=== PATIENT | male | born 1950 | race Caucasian/White ===

== ENCOUNTER 2019-12-30 10:04 | Outpatient (CLI) | payer OTHER, SELFPAY ==
--- NOTE | ~2019-12-30 | US_ITS ---
EXAMINATION: US aorta [facility] DATE: 12/30/2019 10:36 INDICATION: Abdominal aortic aneurysm screening with risk factors of hypertension, smoking and hyperc holesterolemia. TECHNIQUE: Grayscale, color Doppler, and pulsed Doppler images of the aorta and common iliac arteries were obtained. COMPARISON: None. FINDINGS: The proximal aorta measures 2.8 cm. The mid aorta measures 2.0 cm. The distal aorta measures 2.1 cm. No evident atherosclerosis. The right common iliac artery measures 1.3 cm. The left common iliac lucretia ry measures 1.5 cm. IMPRESSION: 1. Normal abdominal aorta. Reviewed, dictated and finalized at location A. IMPRESSION: 1. Normal abdominal aorta.
--- NOTE | ~2019-12-30 | CT_ITS ---
EXAMINATION: CT lung screening DATE: 12/30/2019 11:23 INDICATION: Personal history of tobacco dependence, prior smoker with 30 pack year history TECHNIQUE: Computed tomography (CT) of the chest was performed without intravenous contrast. The dose -length product (DLP) was 142.13 mGy-cm. Automated exposure control and iterative reconstruction tech [employer] were employed. COMPARISON: None FINDINGS: There is mild emphysema. No suspicious pulmonary nodules are identified. Calcified pulmonar y nodules and calcified right hilar lymph nodes are consistent with old granulomatous disease. The dieter ngs are free of acute opacities. There is no pleural effusion or pneumothorax. No pathologically enla rged thoracic lymph nodes are identified. The heart size is normal. Calcified coronary artery atheros clerosis is noted. The gallbladder is surgically absent. There is moderate thoracic spondylosis and s evere lower cervical spondylosis. IMPRESSION: 1. Lung-RADS category 1: Negative. Continue annual screening with noncontrast low-dose chest CT in 12 months. Reviewed, dictated and finalized at location A. IMPRESSION: 1. Lung-RADS category 1: Negative. Continue annual screening with noncontrast l ow-dose chest CT in 12 months.
== END 2019-12-30 10:05 | disposition home or self-care (01) ==
PROVIDERS: PCP Family Medicine; Visit Provider Family Medicine
DX: Z12.2 Encounter for screening for malignant neoplasm of respiratory organs (principal); Z87.891 Personal history of nicotine dependence; Z13.6 Encounter for screening for cardiovascular disorders
CPT/HCPCS: 76706; G0297

== ENCOUNTER 2020-01-19 00:54 | Outpatient (CLI) | payer OTHER, SELFPAY ==
[2020-01-19 18:42] LABS: SARS-CoV-2 RNA PCR Negative
== END 2020-01-19 00:55 | disposition home or self-care (01) ==
LOC: ANHCOVIDDT 00:54
PROVIDERS: PCP Family Medicine; Visit Provider Internal Medicine Gastroenterology
DX: Z01.812 Encounter for preprocedural laboratory examination (principal); Z11.59 Encounter for screening for other viral diseases
CPT/HCPCS: 87635; C9803; U0003

== ENCOUNTER 2020-01-21 02:49 | Day surgery (SDC) | payer OTHER, SELFPAY ==
[2020-01-15 11:11] VITALS: BMI 30.9
[2020-01-21 06:35] VITALS: BP 166/96; PULSE 92; RESP 16; TEMP 36.5; O2SAT 92
[2020-01-21] MEDS: LACTATED RINGERS 1,000 ML 150 ML IV CONT (06:45)
--- NOTE | 2020-01-21 07:16 | P.HP_ITS ---
History of Present Illness History of Present Illness Consent: Risks, benefits, and alternatives have been discussed and questions answered. Patient agrees to proceed with procedure. Chief complaint: Neoplasm Screening Narrative: Antoine Damian is a 69 year old male For screening colonoscopy. A recent colo guard test was positive [facility] Family History Family History Sibling Malignant neoplasm of prostate Family history of coronary artery disease Father Family history of coronary artery disease Social History Social History Smoking status: Former smoker Smoking end date: 07/09/16 Alcohol intake: never Substance use: never Substance use type: does not use Gender identity (if verbalized by the patient): Male Meds Home Medications and Allergies Home Medications Medication Instructions Recorded Confirmed Type folic acid 1 mg tablet 1 mg PO DAILY #90 tablet 08/18/19 01/15/20 Rx metoprolol succinate 50 mg 50 mg PO DAILY #90 tablet 11/26/19 01/15/20 Rx tablet,extended release 24 hr atorvastatin 10 mg tablet 10 mg PO DAILY #90 tablet 12/09/19 01/15/20 Rx sildenafil (pulm.hypertension) 20 See Rx Instructions PO .COMPLEX 12/11/19 01/15/20 Rx mg tablet #30 tablet omeprazole 40 mg capsule,delayed 40 mg PO DAILY #90 cap 12/17/19 01/15/20 Rx release Allergies Allergy/AdvReac Type Severity Reaction Status Date / Time No Known Allergies Allergy Verified 01/21/20 06:32 Vital Signs Vital Signs - 24 hr 01/21/20 06:35 Temperature 36.5 C Pulse Rate 92 Respiratory Rate 16 Blood Pressure 166/96 H Pulse Oximetry 92 Exam Resp: Auscultation: clear to auscultation bilaterally Cardio: Rate: regular rate Rhythm: regular rhythm GI: GI Palp: Yes Soft to palpation and No Tenderness to palpation present (GI) Assessment and Plan Assessment and plan (1) Colon cancer screening: Code(s): Z12.11 - Encounter for screening for malignant neoplasm of colon Status: Acute Assessment and Plan: Colonoscopy with possible biopsy or polypectomy or cautery or injection of substances.
--- NOTE | 2020-01-21 07:32 | WPDANESEPPF ---
Anes - Initial Pre Proc Eval Procedure: Operation Date: 01/21/20 08:00 Proposed Procedures p Screening Colonoscopy - Jose Rasmussen MD Date/Time: 01/21/20 07:32 Surgeon: Jose Rasmussen MD Pre Op Diagnosis: Neoplasm Screening Patient Data Age: 69 Gender: M Height: 5 ft 11 in Weight: 97.8 kg Last Vital Signs Temp 97.7 F 01/21/20 06:35 Pulse 92 01/21/20 06:35 Resp 16 01/21/20 06:35 BP 166/96 H 01/21/20 06:35 Pulse Ox 92 01/21/20 06:35 Allergies Allergy/AdvReac Type Severity Reaction Status Date / Time No Known Allergies Allergy Verified 01/21/20 06:32 Home Medications Medication Instructions Recorded Confirmed Type folic acid 1 mg tablet 1 mg PO DAILY #90 tablet 08/18/19 01/15/20 Rx metoprolol succinate 50 mg 50 mg PO DAILY #90 tablet 11/26/19 01/15/20 Rx tablet,extended release 24 hr atorvastatin 10 mg tablet 10 mg PO DAILY #90 tablet 12/09/19 01/15/20 Rx sildenafil (pulm.hypertension) 20 See Rx Instructions PO .COMPLEX 12/11/19 01/15/20 Rx mg tablet #30 tablet omeprazole 40 mg capsule,delayed 40 mg PO DAILY #90 cap 12/17/19 01/15/20 Rx release Patient hx anesthesia problems: none Family hx anesthesia problems: none PMFSH Past Medical History Medical History (Updated 01/21/20 @ 07:32 by Baljeet Patel MD) Chronic GERD Essential hypertension Mixed hyperlipidemia Renal mass Surgical History Surgical History History of cholecystectomy Family History Family History Sibling Malignant neoplasm of prostate Family history of coronary artery disease Father Family history of coronary artery disease Social History Social History Smoking status: Former smoker Smoking end date: 07/09/16 Alcohol intake: never Substance use: never Substance use type: does not use Gender identity (if verbalized by the patient): Male Anes - Eval Final PreProcedure Day of Procedure 01/21/20 07:32 Patient weight: obese Heart: regular rate and rhythm Lungs: clear to auscultation Airway: Mallampati scale Neurological: alert and oriented Last oral intake: >/= 8 hours ASA classification: III Emergent: no Anesthetic plan: proceed Anesthesia type and monitoring: general GIVS and standard monitoring Informed Consent: The patient's anesthetic plan and its attendant risks and benefits were discussed with the patient/family/POA. Questions were solicited and answers provided to the satisfaction of the patient/family/POA.
[2020-01-21] MEDS: SIMETHICONE ORAL SUSPENSION 20 MG/0.3 ML 30 ML BOTTLE 0.6 ML IRRIGATION (08:28)
[2020-01-21 08:42] VITALS: BP 116/74; PULSE 80; RESP 20; O2SAT 89
[2020-01-21 08:52] VITALS: BP 121/81; PULSE 73; RESP 20; O2SAT 94
[2020-01-21 08:53] VITALS: BP 141/88; PULSE 75; RESP 20; O2SAT 95
== END 2020-01-21 09:08 | disposition home or self-care (01) ==
PROVIDERS: PCP Family Medicine; Visit Provider Internal Medicine Gastroenterology
PROC: 0DJD8ZZ Inspection of Lower Intestinal Tract, Via Natural or Artificial Opening Endoscopic (ICD-10-PCS; CPT 45378; principal; 2020-01-21 08:00)
DX: Z12.11 Encounter for screening for malignant neoplasm of colon (principal); D12.5 Benign neoplasm of sigmoid colon; K63.5 Polyp of colon; K62.1 Rectal polyp; R19.5 Other fecal abnormalities; I10 Essential (primary) hypertension; E78.2 Mixed hyperlipidemia; K21.9 Gastro-esophageal reflux disease without esophagitis; Z87.891 Personal history of nicotine dependence; E66.9 Obesity, unspecified; Z68.30 Body mass index [BMI] 30.0-30.9, adult
CPT/HCPCS: 45385; 45380; 88305; J2704; J7120

== ENCOUNTER → 2020-12-29 08:20 | Outpatient (CLI) | payer OTHER, SELFPAY ==
--- NOTE | ~2020-12-29 | CT_ITS ---
EXAMINATION: CT lung screening DATE: 12/29/2020 08:35 INDICATION: Lung cancer screening TECHNIQUE: Computed tomography (CT) of the chest was performed without intravenous contrast. The dose -length product was 200.95 mGy-cm. Automated exposure control and iterative reconstruction technique were employed. COMPARISON: CT dated 12/30/2011 FINDINGS: Mild emphysema. No significant pleural or pericardial effusion. Heart size normal. No thora cic lymphadenopathy. There is an exophytic 1.5 cm right renal mass posteriorly. Correlation with MRI recommended for further characterization. There are cholecystectomy clips. No suspicious pulmonary no dules or masses. No pneumothorax. There is evidence for chronic granulomatous disease. IMPRESSION: 1. Lung-RADS category 1: Negative. Continue annual screening with noncontrast low-dose chest CT in 12 months. 2: Complicated partially solid 1.5 cm right renal mass, concerning for renal cell carcinoma. Correlat ion with MRI recommended with contrast. Reviewed, dictated and finalized at location B. IMPRESSION: 1. Lung-RADS category 1: Negative. Continue annual screening with noncontrast l ow-dose chest CT in 12 months. 2: Complicated partially solid 1.5 cm right renal mass, concerning for renal ce ll carcinoma. Correlation with MRI recommended with contrast.
== END ==
PROVIDERS: PCP Family Medicine; Visit Provider Family Medicine
DX: Z12.2 Encounter for screening for malignant neoplasm of respiratory organs (principal); Z87.891 Personal history of nicotine dependence; N28.89 Other specified disorders of kidney and ureter
CPT/HCPCS: 71271

== ENCOUNTER → 2022-01-02 10:46 | Outpatient (CLI) | payer OTHER, SELFPAY ==
--- NOTE | ~2022-01-02 | CT_ITS ---
EXAMINATION: CT lung screening DATE: 01/02/2022 11:07 INDICATION: Personal history of nicotine dependence, prior smoker with 30 pack year history TECHNIQUE: Computed tomography (CT) of the chest was performed without intravenous contrast. The dose -length product (DLP) was 242.19 mGy-cm. Automated exposure control and iterative reconstruction tech [employer] were employed. COMPARISON: 12/29/2020 FINDINGS: There is mild emphysema. Calcified pulmonary nodules and calcified right hilar lymph nodes are consistent with old granulomatous disease. No suspicious pulmonary nodules are identified. No ple ural effusion or pneumothorax. No pathologically enlarged thoracic lymph nodes are identified. The he art size is normal. Calcified coronary artery atherosclerosis is noted. The gallbladder is surgically absent. There is moderate thoracic and severe lower cervical spondylosis. IMPRESSION: 1. Lung-RADS category 1: Negative. Continue annual screening with noncontrast low-dose chest CT in 12 months. Reviewed, dictated and finalized at location A. IMPRESSION: 1. Lung-RADS category 1: Negative. Continue annual screening with noncontrast l ow-dose chest CT in 12 months.
== END ==
PROVIDERS: PCP Family Medicine; Visit Provider Family Medicine
DX: Z12.2 Encounter for screening for malignant neoplasm of respiratory organs (principal); Z87.891 Personal history of nicotine dependence
CPT/HCPCS: 71271

== ENCOUNTER 2022-10-21 08:03 | Outpatient (CLI) | payer OTHER, SELFPAY ==
--- NOTE | ~2022-10-21 | XR_ITS ---
Left Knee Technique: AP, lateral, and sunrise views were obtained. Clinical History: Pain Findings: There is a large osteophyte/enthesopathic change at the inferior pole of patella, possible fracture through the osteophyte. No other fracture or dislocation seen. Minimal patellar spurring not ed. Soft tissues are unremarkable. No joint effusion is seen. Impression: Suspected fracture through a large inferior patellar pole osteophyte/enthesopathic change. Reviewed, dictated and finalized at location M. Impression: Suspected fracture through a large inferior patellar pole osteophyte/enthesopat hic change.
== END 2022-10-21 08:04 | disposition home or self-care (01) ==
LOC: ANHIMG 08:05
PROVIDERS: PCP Family Medicine; Visit Provider Family Medicine
DX: M25.562 Pain in left knee (principal)
CPT/HCPCS: 73560

== ENCOUNTER 2022-10-24 14:10 | Observation (INO) | payer OTHER, SELFPAY ==
[2022-10-24] VITALS (9 sets, daily range): BP systolic 111–150; BP diastolic 82–104; PULSE 68–90; RESP 14–19; TEMP 36.1–36.7; O2SAT 93–100; BMI 30.3
--- NOTE | ~2022-10-24 | MR_ITS ---
MRI of the brain Clinical History: Confusion, CVA Technique: Axial and sagittal T1-weighted images were acquired. These were followed by axial T2-weigh apuvra, diffusion weighted, gradient, and FLAIR images. Findings: There is no acute infarct, intracranial hemorrhage, or mass lesion. There are minimal chron ic white matter changes in the periventricular white matter bilaterally. Ventricles and subarachnoid spaces are unremarkable. Orbits are unremarkable. There is opacification of the left maxillary sinus. There is mild bilateral ethmoid sinus disease. Remaining paranasal sinus es and mastoid air cells are clear. Major intracranial flow voids are intact. Sagittal midline structures are intact. IMPRESSION: No acute intracranial abnormality. Minimal chronic white matter changes. Sinus disease, as above. Reviewed, dictated and finalized at location .
--- NOTE | ~2022-10-24 | CT_ITS ---
EXAMINATION: CT brain wo con DATE: 10/24/2022 14:55 INDICATION: Altered mental status, confusion and slurred speech TECHNIQUE: Computed tomography (CT) of the head was performed without intravenous contrast. Sagittal and coronal reconstructions were performed. The mA was adjusted according to patient size. Iterative reconstruction technique was employed. The dose-length product was 605.33 mGy-cm. COMPARISON: None FINDINGS: Tiny old lacunar infarct at the head of the right caudate nucleus. No acute intracranial hemorrhage, acute infarction or abnormal extra axial fluid collection. Symmetric prominence of the sulci consiste nt with mild to moderate age-appropriate diffuse cerebral volume loss. Ventricles are normal and sym metric. No mass/mass effect. Changes of bilateral intraocular lens replacement. The orbits and mastoi d air cells are normal. Mucosal thickening in the bilateral ethmoid sinuses and near complete opacifi cation of the visualized portion of the left maxillary sinus. IMPRESSION: 1. Small old lacunar infarct at the head of the right caudate nucleus. No acute intracranial process. 2. Sinus disease with near complete opacification of the visualized portion of the left maxillary sin us. Correlate clinically for acute sinusitis. Reviewed, dictated and finalized at location A. IMPRESSION: 1. Small old lacunar infarct at the head of the right caudate nucleus. No acute intracranial process. 2. Sinus disease with near complete opacification of the visualized portion of the left maxillary sinus. Correlate clinically for acute sinusitis.
--- NOTE | ~2022-10-24 | US_ITS ---
Procedure: Duplex Doppler examination of the bilateral carotids. Indication: Confusion, neurologic symptoms Technique: Real time, color-flow and pulse wave Doppler examination of the bilateral carotids was performed. Findings: Armendariz scale ultrasonography of the right neck demonstrated no significant plaque. There was demonstrat ion of normal color-flow and Doppler waveforms within the right common, internal and external carotid arteries. The peak systolic velocities in the right common, internal and external carotid arteries w ere demonstrated to be 65 cm/sec, 41 cm/sec and 51 cm/sec respectively. The right ICA/CCA ratio was 0 .6.The proximal right internal carotid artery demonstrates 0% stenosis relative to the normal distal artery lumen diameter. Armendariz scale sonography of the left neck demonstrated no significant plaque. There was demonstration of normal color-flow and wave forms within the left common, internal and external carotid arteries. The peak systolic velocities in the left common, internal and external carotid arteries were demonstrate d to be 69cm/sec, 69 cm/sec and 57 cm/sec respectively. The left ICA/CCA ratio was 1.0. The proximal left internal carotid artery demonstrates 0% stenosis relative to the normal distal artery lumen diam eter. There was antegrade flow demonstrated in the bilateral vertebral arteries. Impression: No hemodynamically significant stenosis of the bilateral internal carotid arteries. Antegrade flow in the bilateral vertebral arteries. Note: The methodology used is an indirect measurement validated against a direct method (such as the NASCET criteria) that compares diameters at the stenosis to the distal ICA. Reviewed, dictated and finalized at [facility]. Impression: No hemodynamically significant stenosis of the bilateral internal carotid arter ies. Antegrade flow in the bilateral vertebral arteries. Note: The methodology used is an indirect measurement validated against a direct meth od (such as the NASCET criteria) that compares diameters at the stenosis to the distal ICA.
--- NOTE | 2022-10-24 14:19 | ECG_ITS ---
Measurements Intervals [place] Rate: 80 P: 20 AL: 202 QRS: -27 QRSD: 112 T: -15 QT: 382 QTc: 441 Interpretive Statements SINUS RHYTHM BORDERLINE LEFT AXIS DEVIATION [QRS AXIS < -20] MODERATE INTRAVENTRICULAR CONDUCTION DELAY [110+ ms QRS DURATION] MODERATE T-WAVE ABNORMALITY, CONSIDER ANTERIOR ISCHEMIA [-0.1+ mV T WAVE IN V3/V4] NO PREVIOUS ECG AVAILABLE FOR COMPARISON Electronically Signed On 10-24-2022 18:04:10 CDT by Charles Paniagua M.D.
--- NOTE | 2022-10-24 14:24 | PC.NURSE ---
BS 450
[2022-10-24 14:31] LABS: Glucose Point of Care 450 mg/dl (65-105)
[2022-10-24 14:34] LABS: Basophils Absolute Auto 0.1 K/mm3 (0.0-0.1); Basophils Percent Auto 0.8 % (0.2-1.2); Eosinophils Absolute Auto 0.3 K/mm3 (0-0.3); Eosinophils Percent Auto 2.9 % (0-4.4); Hematocrit 46.6 % (42.0-52.0); Hemoglobin 16.7 g/dL (14.0-18.0); Immature Granulocyte Absolute 0.03 K/mm3 (0.00-0.031); Immature Granulocyte Percent A 0.3 % (0-0.5); Lymphocytes Absolute Auto 1.93 K/mm3 (0.9-3.2); Lymphocytes Percent Auto 19.4 % (18.3-44.2); Mean Corpuscular HGB Conc 35.8 g/dl (32-36); Mean Corpuscular Hemoglobin 32.2 pg (26-34); Monocytes Absolute Auto 0.6 K/mm3 (0.1-0.6); Monocytes Percent Auto 6.2 % (2.6-8.5); Neutrophils Percent Auto 70.4 % (45.5-73.1); Platelet Count Result 158 k/mm3 (150-375); Red Blood Count 5.18 M/mm3 (4.6-6.20); Red Cell Distribution Width 12.8 % (11.5-14.5)
[2022-10-24 14:42] LABS: Alanine Aminotransferase 30 U/L (6-50); Albumin Level 4.4 g/dL (3.5-5.1); Alkaline Phosphatase 179 U/L (38-126); Anion Gap 10 mmol/L (8-16); Aspartate Amino Transferase 26 U/L (17-59); Bilirubin,Total 1.9 mg/dL (0.2-1.3); Blood Urea Nitrogen 12 mg/dL (9-20); Calcium 9.3 mg/dL (8.4-10.2); Carbon Dioxide 25 mmol/L (22-30); Chloride 99 mmol/L (98-107); Estimated CRCL calculation 84 ml/min; Estimated Glomerular Filt Rate > 60; Glucose 457 mg/dL (65-110); Sodium 134 mmol/L (137-145)
--- NOTE | 2022-10-24 14:44 | ED.AMS ---
HPI - Altered Mental Status General Chief Complaint: Altered Mental Status Stated Complaint: Altered mental status Time Seen by Provider: 10/24/22 14:33 History of Present Illness HPI narrative: Pt presents with altered mental status and confusion as well as fatigue for 3-4 days. Pt denies fever or cough. Pt has some urinary frequency but no dysuria. Pt has intermittent LENNON's behind left eye but not now. Pt denies one sided weakness or numbness. Related Data Home Medications Medication Instructions Recorded Confirmed gabapentin 300 mg capsule 300 mg PO TID 10/24/22 10/24/22 metoprolol succinate 50 mg 50 mg PO DAILY 10/24/22 10/24/22 tablet,extended release 24 hr Allergies Allergy/AdvReac Type Severity Reaction Status Date / Time No Known Allergies Allergy Verified 10/24/22 14:21 Review of Systems Review of Systems: All systems reviewed & are unremarkable except as noted in HPI and below PMFSH Past Medical History Medical History Chronic GERD Essential hypertension History of renal cell cancer Mixed hyperlipidemia Renal mass Surgical History Surgical History History of cholecystectomy Family History Family History Sibling Malignant neoplasm of prostate Family history of coronary artery disease Father Family history of coronary artery disease Social History Social History Smoking packs per day: 2 Smoking cigarettes per day: 40.0 Years smoked: 40 Smoking pack-years: 80.00 Smoking status: Former smoker Tobacco type: cigarettes Second hand tobacco smoke exposure: Yes Smoking end date: 07/09/16 Alcohol intake: never Substance use: never Substance use type: does not use Lack of Transportation: No Lack of Food: Never True Current Housing: Decline to Answer Concerned About Future Housing: Decline to Answer Difficulty Paying Gas/Electric Bills: Decline to Answer Difficulty Paying for Meds: Decline to Answer Currently Unemployed: Decline to Answer Education: Decline to Answer Difficulty w/ Childcare or Family Care: Decline to Answer Living arrangements: with family Occupation/Education: retired Gender identity (if verbalized by the patient): Male Spiritual care concerns: No Exam Const: General: healthy appearing and no acute distress Nutritional Appearance: well nourished Orientation/consciousness: patient oriented x3 Limitations: no limitations HENMT: Head: normal to inspection Mouth: Yes dry mucous membranes Eyes: Conjunctivae: conjunctivae normal Pupils: Equal, round and reactive pupils present EOM: EOMs intact bilaterally Neck: Neck: normal visual inspection, no lymphadenopathy and no meningeal signs Chest: Chest palpation & inspection: normal inspection of the chest Resp: Effort & Inspection: normal respiratory effort Auscultation: clear to auscultation bilaterally Cardio: Rate: regular rate Rhythm: regular rhythm GI: GI Palp: Yes Soft to palpation Auscultation: normal bowel sounds Skin: General skin exam: normal color Rashes: no rashes Wounds: no wounds Neuro: General: patient oriented x3, moves all extremities, no meningeal signs, no focal motor deficits and CN's II-XI intact bilaterally Cranial nerves: Yes Nystagmus not present Speech: normal speech Extrem: General: normal to inspection, no clubbing, cyanosis or edema and no pedal edema Psych: Mental Status: mental status grossly normal Affect: normal affect Attitude: cooperative Course Vital Signs Vital signs: Vital Signs Temperature 98.0 F 10/24/22 14:10 Pulse Rate 86 10/24/22 14:10 Respiratory Rate 14 10/24/22 14:10 Blood Pressure 150/104 H 10/24/22 14:10 Pulse Oximetry 93 10/24/22 14:10 Oxygen Delivery Room Air
[2022-10-24 14:47] LABS: INR 1.1; Prothrombin Time 13.4 Seconds (11.1-14.7)
[2022-10-24 14:48] LABS: Partial Thromboplastin Time 28.3 SECONDS (22.3-36.8)
[2022-10-24] MEDS: SODIUM CHLORIDE 0.9% IV 1,000 ML 999 ML IV CONT (15:05)
[2022-10-24] MEDS: INSULIN HUMAN REGULAR (*BKC) 100 UNITS/ML 10 UNITS IV PUSH (15:05)
[2022-10-24 15:24] LABS: Appearance Urine Clear (Clear); Bilirubin Urine Negative (Negative); Blood Urine Negative (Negative); Color Urine Yellow (Yellow); Glucose Urine UA 3+ mg/dL (Negative); Ketones Urine 2+ mg/dL (Negative); Leukocyte Esterase Ur Negative LEU/UL (Negative); Nitrate Urine Negative (Negative); Protein Urine Negative (Negative); Urobilinogen Urine 0.2 mg/dL (<2.0)
[2022-10-24 15:36] LABS: Add Urine Microscopic? NO; Specific Grav Ur 1.044 (1.001-1.035)
[2022-10-24 16:02] LABS: Lactic Acid Reflex 2.2 mmol/L (0.7-2.0)
--- NOTE | 2022-10-24 16:04 | PC.NURSE ---
BS 291.
[2022-10-24 16:05] LABS: Glucose Point of Care 291 mg/dl (65-105)
--- NOTE | 2022-10-24 17:04 | PC.NURSE ---
called dietary and ordered dinner tray for pt at this time
--- NOTE | 2022-10-24 18:13 | ADMGEN ---
This patient, Antoine Damian, was admitted to Medical Room 340-01. Patient/family oriented to hospital policies and general routines including ID bracelet, bed and alarms, visiting hours, pain management, procedures, bathroom and other care routines, personal items, smoking policy, room service/diet, and visiting hours. Information on how to activate the Rapid Response Team has been discussed. Patient/Family are encouraged to report perceived risks to care and to ask questions if they do not understand what they are told or what they should do.
[2022-10-24 18:27] LABS: Glucose Point of Care 302 mg/dl (65-105)
[2022-10-24 18:46] LABS: Reflex Lactic Acid Yes or No Add Lactic
[2022-10-24 19:35] LABS: Lactic Acid 1.8 mmol/L (0.7-2.0)
[2022-10-24 21:50] LABS: Glucose Point of Care 270 mg/dl (65-105)
[2022-10-24 22:06] LABS: Hemoglobin A1C 10.5 % (<5.7)
--- NOTE | 2022-10-24 22:30 | PM.IMHP ---
H&P: HPI History of Present Illness Date/Time: 10/24/22 22:30 Chief Complaint: Altered mental status. Narrative: This is a 72-year-old male who reports a history of prediabetes (random glucose today was 457), GERD, and hypertension who presented to the emergency department via EMS from home for evaluation of altered mental status. Patient provides the following history. His provides additional information, with the patient's permission. Yesterday he felt a bit ?out of it? and he tells me that he was having difficulties working his phone and he could not remember his grandchildren's names. Overall he felt as though he was having difficulties comprehending everyday activities and his daughter noticed that he had some mild slurred speech. He has also had a mild headache behind his left eye which is unusual for him. 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 He denies vertigo, auditory and visual changes, facial droop, and difficulty speaking and swallowing. He denies syncope and near-syncope and he has not had any recent falls or injuries. Vital signs were stable on arrival to the emergency department. His glucose was 457 and with further questioning he was told several months ago that he was prediabetic. He does not check his glucose at home but he has noticed an increase in thirst and urination recently. Brain CT showed a small old lacunar infarct at that of the right caudate nucleus but no acute intracranial process. Sinus disease was noted with near complete opacification of the visualized for some the left maxillary sinus though the patient has no symptoms to suggest active sinusitis. He is being admitted in this setting for further workup the neurologic symptoms. At the time my evaluation he has no complaints. Review of Systems Review of Systems: Twelve systems were reviewed. No fever, chills, or sweats. He denies blurry vision. No nonhealing wounds or rashes. He denies chest pain, pleuritic pain, palpitations, and sensations of racing heart. No history of cardiac dysrhythmia. Appetite has been good. He denies nausea, vomiting, and diarrhea. No dysuria. He has not been started on any new medications recently. Except as documented, all other systems were reviewed and are negative. PMFSH Past Medical History Medical History Chronic GERD Essential hypertension History of renal cell cancer (07/2017) Status post ablation. Mixed hyperlipidemia Renal mass Surgical History Surgical History History of appendectomy History of cholecystectomy History of colonoscopy with polypectomy Family History Family History Sibling Malignant neoplasm of prostate Family history of coronary artery disease Father Family history of coronary artery disease Social History Social History Social History: Surrogate medical decision maker: Genevieve Damian, spouse. Code status: Full code. Smoking packs per day: 2 Smoking cigarettes per day: 40.0 Years smoked: 40 Smoking pack-years: 80.00 Smoking status: Former smoker Tobacco type: cigarettes Second hand tobacco smoke exposure: Yes Smoking end date: 07/09/16 Alcohol intake: never Substance use: never Substance use type: does not use Lack of Transportation: No Lack of Food: Never True Current Housing: Decline to Answer Concerned About Future Housing: Decline to Answer Difficulty Paying Gas/Electric Bills: Decline to Answer Difficulty Paying for Meds: Decline to Answer Currently Unemployed: Decline to Answer Education: Decline to Answer Difficulty w/ Childcare or Family Care: De
[2022-10-25] VITALS (9 sets, daily range): BP systolic 134–135; BP diastolic 81–86; PULSE 62–77; RESP 16; TEMP 36.4–36.5; O2SAT 94–99; BMI 30.3
--- NOTE | 2022-10-25 00:39 | ECHO_ITS ---
Patient Info Name: Antoine Damian Age: 72 years : 1950 Gender: Male Ht: 70 in Wt: 211 lbs BSA: 2.20 m2 HR: 77 bpm BP: 135 / 86 mmHg Heart Rhythm: Sinus Rhythm Technical Quality: Fair Exam Date: 10/25/2022 1:01 PM Exam Location: [facility] Patient Status: Outpatient Admit Date: 10/24/2022 Staff Ordering Physician: Liz Bergeron PA-C Wearing Apparel Assembler: Sally Sánchez RDCS Attending Provider: Veronica Miranda MD Referring Physician: Rubio CROSS; Exam Type: CA echo doppler w bubble study Study Info Indications - Neurologic symptoms, hypertension Complete two-dimentional, color flow and Doppler transthoracic echocardiogram is performed with agitated saline and with contrast to opacify the left ventricle and to improve the delineation of the left ventricle endocardial borders. Contrast/Agitated Saline Contrast/Ag. Saline: Definity Amount: 3.00 ml Administered By: Sally Sánchez RDCS Existing IV Access: Yes IV Access Condition: patent with no signs of infiltration Contrast/Ag. Saline: Agitated Saline Amount: 20.00 ml Administered By: Mark Bellamy RDCS Existing IV Access: Yes IV Access Condition: patent with no signs of infiltration Summary 1. Left ventricular chamber dimension is normal. 2. Definity contrast administered improved wall motion interpretation. 3. Left ventricular systolic function is normal, estimated at 60-65%. 4. The left ventricular diastolic function is grade I diastolic dysfunction. 5. E/e' 10 is mildly elevated. 6. No pulmonary hypertension, estimated pulmonary arterial systolic pressure is 25 mmHg. Left Ventricle E/e' 10 is mildly elevated. Definity contrast administered improved wall motion interpretation. Left ventricular chamber dimension is normal. Left ventricular systolic function is normal, estimated at 60-65%. The left ventricular diastolic function is grade I diastolic dysfunction. Right Ventricle Right ventricular systolic function is normal and with normal TAPSE 2.1 cm. Right ventricular chamber dimension is normal. Left Atria Left atrial chamber dimension is normal. Right Atria Right atrial chamber dimension is normal. Atrial Septum Agitated saline injection with and without valsalva maneuver opacified right side cardiac chambers without shunt to left side cardiac chambers. Intact interatrial septum visualized by 2D and agitated saline imaging. Aortic Valve The aortic valve is trileaflet. There is no aortic valve stenosis. There is no aortic valve regurgitation. Pulmonic Valve There is no pulmonic regurgitation. Mitral Valve There is no mitral valve stenosis. There is no mitral valve regurgitation. Tricuspid Valve There is no tricuspid valve regurgitation. No pulmonary hypertension, estimated pulmonary arterial systolic pressure is 25 mmHg. Pericardium/Pleural There is no pericardial effusion. Inferior Vena Cava Normal inferior vena cava with >50% collapse upon inspiration consistent with normal right atrial pressure, 5 mmHg. Aorta The aortic root size at the sinus of Valsalva is normal. Left Ventricular Outflow Tract Name Value Normal LVOT 2D
[2022-10-25 05:57] LABS: Cholesterol 78 mg/dL (0-200); HDL Direct 18 mg/dL; Triglycerides 187 mg/dL (<150)
[2022-10-25 06:08] LABS: LDL Cholesterol Direct 37 mg/dL
[2022-10-25 08:09] LABS: Glucose Point of Care 301 mg/dl (65-105)
[2022-10-25] MEDS: METOPROLOL SUCCINATE EXT REL 50 MG TABCR PO (08:10)
[2022-10-25] MEDS: INSULIN ASPART (*BKC) 100 UNITS/ML SUB-Q ×3 (08:10→17:03)
[2022-10-25] MEDS: PANTOPRAZOLE 40 MG TABLET PO ×2 (08:10→20:37)
[2022-10-25] MEDS: GABAPENTIN 300 MG CAPSULE PO ×3 (08:10→17:03)
[2022-10-25] MEDS: CHOLESTYRAMINE (W/ SUGAR) 4 GM POWD.PACK BY MOUTH (09:05)
[2022-10-25] MEDS: INSULIN GLARGINE (*BKC) 100 UNITS/ML 19 UNITS SUB-Q (09:05)
--- NOTE | 2022-10-25 10:30 | PM.IMPN ---
Progress Note: A&P Assessment and Plan (1) Acute metabolic encephalopathy: Code(s): G93.41 - Metabolic encephalopathy Status: Acute Assessment and Plan: Presented to the ER for evaluation of altered mental status over the last couple of days. Complaints of mild slurred speech, difficulties comprehending everyday activities, and forgetting the names of his grand children. Brain CT indicated old lunacar infarct at the head of the right caudate nucleus Brain MRI no acute infarct Carotid Doppler ultrasounds Echocardiogram with bubble Continue neurologic checks q.4 hours. Could be related to TIA, hyperglycemia Consulted Neurology at this time (2) TIA (transient ischemic attack): Code(s): G45.9 - Transient cerebral ischemic attack, unspecified Status: Acute Assessment and Plan: Presented to the ER for evaluation of altered mental status over the last couple of days. Complaints of mild slurred speech, difficulties comprehending everyday activities, and forgetting the names of his grand children. Brain CT indicated old lunacar infarct at the head of the right caudate nucleus Brain MRI no acute infarct Carotid Doppler ultrasounds Echocardiogram with bubble Consult neurology thank you for your help lipid panel cholesterol 78, triglycerides 181, LDL 37, HDL 18, stable Start aspirin, consider Plavix No indication for a statin A1c 10.5, continue insulin as ordered Continue neurologic checks q.4 hours. Could be related to TIA, hyperglycemia (3) New onset type 2 diabetes mellitus: Code(s): E11.9 - Type 2 diabetes mellitus without complications Status: Acute Assessment and Plan: Random glucose remains in the high 200-300s Start lantus at 19 units daily Hemoglobin A1c is 10.5 accu cheks diabetic diet sliding scale insulin adjusted at a higher dose Dietitian and ems educator consulted. 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 Patient's was also present. Talked to them about insulin and other diabetic drugs. They were more concerned about having to do insulin however explained to them with the A1c value and his glucose levels the patient will most likely need insulin for a little bit prior to being changed. Also talked to them about the symptoms he came in with and the stroke/TIA workup. Currently patient denies any chest pain, shortness a breath, nausea, vomiting, diarrhea or constipation. Patient states that he feels pretty normal. Started him on Lantus will need to ensure patient does not go too low and awaiting nurse educator. 10/24/22? 22:30 This is a 72-year-old male who reports a history of prediabetes (random glucose today was 457), GERD, and hypertension who presented to the emergency department via EMS from home for evaluation of altered mental status. Patient provides the following history. His provides additional information, with the patient's permission. Yesterday he felt a bit ?out of it? and he tells me that he was having difficulties working his phone and he could not remember his grandchildren's names. Ti
--- NOTE | 2022-10-25 10:30 | P.PNIM_ITS ---
Progress Note: A&P Assessment and Plan (1) Acute metabolic encephalopathy: Code(s): G93.41 - Metabolic encephalopathy Status: Acute Assessment and Plan: * Presented to the ER for evaluation of altered mental status over the last couple of days. * Complaints of mild slurred speech, difficulties comprehending everyday activities, and forgetting the names of his grand children. * Brain CT indicated old lunacar infarct at the head of the right caudate nucleus * Brain MRI no acute infarct * Carotid Doppler ultrasounds * Echocardiogram with bubble * Continue neurologic checks q.4 hours. * Could be related to TIA, hyperglycemia * Consulted Neurology at this time (2) TIA (transient ischemic attack): Code(s): G45.9 - Transient cerebral ischemic attack, unspecified Status: Acute Assessment and Plan: * Presented to the ER for evaluation of altered mental status over the last couple of days. * Complaints of mild slurred speech, difficulties comprehending everyday activities, and forgetting the names of his grand children. * Brain CT indicated old lunacar infarct at the head of the right caudate nucleus * Brain MRI no acute infarct * Carotid Doppler ultrasounds * Echocardiogram with bubble * Consult neurology thank you for your help * lipid panel cholesterol 78, triglycerides 181, LDL 37, HDL 18, stable * Start aspirin, consider Plavix * No indication for a statin * A1c 10.5, continue insulin as ordered * Continue neurologic checks q.4 hours. * Could be related to TIA, hyperglycemia (3) New onset type 2 diabetes mellitus: Code(s): E11.9 - Type 2 diabetes mellitus without complications Status: Acute Assessment and Plan: * Random glucose remains in the high 200-300s * Start lantus at 19 units daily * Hemoglobin A1c is 10.5 * accu cheks * diabetic diet * sliding scale insulin adjusted at a higher dose * Dietitian and elementary educator consulted. 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 Patient's was also present. Talked to them about insulin and other diabetic drugs. They were more concerned about having to do insulin however explained to them with the A1c value and his glucose leve ls the patient will most likely need insulin for a little bit prior to being changed. Also talked to them about the symptoms he came in with and the stroke/TIA workup. Currently patient denies any chest pain, shortness a breath, nausea, vomiting, diarrhea or constipation. Patient states that he feels pretty normal. Started him on Lantus will need to ensure patient does not g
--- NOTE | 2022-10-25 11:31 | WPDNEURCNPN ---
Assessment and Plan Assessment and plan (1) TIA (transient ischemic attack): Code(s): G45.9 - Transient cerebral ischemic attack, unspecified Status: Acute (2) Essential hypertension: Code(s): I10 - Essential (primary) hypertension Status: Acute (3) Vascular dementia with anxiety: Code(s): F01.54 - Vascular dementia, unspecified severity, with anxiety Status: Acute Plan 1 question early neurodegenerative process with negative CT scan for the normal pressure hydrocephalus, MRI of the brain negative for stroke or tumor we can consider the possibility of early vascular dementia, 2 diabetes mellitus with diabetic neuropathy resulting in the gait dysfunction 3 no signs of Parkinson's disease at this stage. Once all the studies are completed will discuss with the family Consult date: 10/25/22 HPI: Antoine Damian is a 72 year old male admitted to the hospital through the emergency room with complaints of change in the mental status over the last several days described as confusion without associated any general symptomatology except the some urinary frequency and complained of headache behind his left eye. Patient has been taking gabapentin 300 mg 3 times a day and metoprolol 50 mg daily with no history of being allergic to any medication but history of 1. Hypertension 2. Mixed hyperlipidemia 3. Renal mass with history of renal cell cancer. Patient has history of smoking pack years 80 though at present is a former smoker and does not drink alcohol initial exam in the emergency room was nonfocal routine vital signs were normal routine lab studies were with blood sugar of 457 and sodium of 134 with normal UA, CT scan of the head with small old lacunar infarct at the head of the right caudate nucleus but no evidence of bleed though signs of sinusitis with complete opacification of the visualized portion of the left maxillary sinus, MRI today was completely negative and x-ray of the knee raise the question about the suspected fracture through a large inferior pattelar pole PMFSH Past Medical History Medical History (Updated 10/25/22 @ 11:44 by Thomas Sherwood MD) Chronic GERD Essential hypertension History of renal cell cancer (07/2017) Status post ablation. Mixed hyperlipidemia Renal mass Surgical History Surgical History (Updated 10/25/22 @ 00:46 by Liz Bergeron PA-C) History of appendectomy History of cholecystectomy History of colonoscopy with polypectomy Family History Family History Sibling Malignant neoplasm of prostate Family history of coronary artery disease Father Family history of coronary artery disease Social History Social History (Updated 10/24/22 @ 20:59 by Liz Bergeron PA-C) Social History: Surrogate medical decision maker: Genevieve Damian, spouse. Code status: Full code. Smoking packs per day: 2 Smoking cigarettes per day: 40.0 Years smoked: 40 Smoking pack-years: 80.00 Smoking status: Former smoker Tobacco type: cigarettes Second hand tobacco smoke exposure: Yes Smoking end date: 07/09/16 Alcohol intake: never Substance use: never Substance use type: does not use Lack of Transportation: No Lack of Food: Never True Current Housing: Decline to Answer Concerned About Future Housing: Decline to Answer Difficulty Paying Gas/Electric Bills: Decline to Answer Difficulty Paying for Meds: Decline to Answer Currently Unemployed: Decline to Answer Education: Decline to Answer Difficulty w/ Childcare or Family Care: Decline to Answer Living arrangements: with family Occupation/Education: retired Spiritual care concerns: No Meds Home Medications and Allergies Home Medications Medication Instructions Recorded Confirmed Type omeprazole 40 mg capsule,delayed 40 mg PO DAILY #90 caps 11/17/21 10/24/22 Rx release cholestyramine (with connelly
[2022-10-25] MEDS: ACETAMINOPHEN 325 MG TABLET PO (11:57)
[2022-10-25 12:09] LABS: Glucose Point of Care 266 mg/dl (65-105)
[2022-10-25] MEDS: PERFLUTREN LIPID MICROSPHERES 1.5 ML VIAL DILUTED TO 10 ML TOTAL VOLUME IV PUSH (13:42)
--- NOTE | 2022-10-25 13:43 | IVDEFINITY ---
Prior to administration of IV Definity the patient was educated on the risks and benefits of the imaging enhancing agent including potential adverse side effects. The patient verbalized understanding. Allergies were verified. No exclusion criteria were identified and at least one of the following inclusion criteria were met: 1) physician request, 2) patient technically difficult to image (per the [place] [employer] guidelines of two or more segments not discernable within the apical view), or 3) questionable left ventricular function. ?
[2022-10-25 17:01] LABS: Glucose Point of Care 261 mg/dl (65-105)
[2022-10-25 22:04] LABS: Glucose Point of Care 212 mg/dl (65-105)
[2022-10-26] VITALS: PULSE 69
[2022-10-26 04:00] VITALS: PULSE 71
[2022-10-26 05:46] LABS: Basophils Absolute Auto 0.1 K/mm3 (0.0-0.1); Basophils Percent Auto 0.9 % (0.2-1.2); Eosinophils Absolute Auto 0.3 K/mm3 (0-0.3); Eosinophils Percent Auto 4.4 % (0-4.4); Hemoglobin 15.4 g/dL (14.0-18.0); Immature Granulocyte Absolute 0.01 K/mm3 (0.00-0.031); Immature Granulocyte Percent A 0.1 % (0-0.5); Lymphocytes Absolute Auto 1.74 K/mm3 (0.9-3.2); Lymphocytes Percent Auto 24.9 % (18.3-44.2); Mean Corpuscular Hemoglobin 32.3 pg (26-34); Mean Corpuscular Volume 92.2 fl (80-100); Mean Platelet Volume 11.3 fl (7.4-10.4); Monocytes Absolute Auto 0.5 K/mm3 (0.1-0.6); Monocytes Percent Auto 6.9 % (2.6-8.5); Neutrophils Absolute Auto 4.4 K/mm3 (1.3-6.7); Neutrophils Percent Auto 62.8 % (45.5-73.1); Platelet Count Result 136 k/mm3 (150-375); Red Blood Count 4.77 M/mm3 (4.6-6.20); Red Cell Distribution Width 12.9 % (11.5-14.5)
[2022-10-26 05:50] LABS: Alanine Aminotransferase 24 U/L (6-50); Albumin Level 3.4 g/dL (3.5-5.1); Alkaline Phosphatase 128 U/L (38-126); Anion Gap 1 mmol/L (8-16); Aspartate Amino Transferase 30 U/L (17-59); Bilirubin,Total 1.5 mg/dL (0.2-1.3); Blood Urea Nitrogen 10 mg/dL (9-20); Calcium 8.3 mg/dL (8.4-10.2); Carbon Dioxide 31 mmol/L (22-30); Chloride 104 mmol/L (98-107); Estimated CRCL calculation 69 ml/min; Estimated Glomerular Filt Rate > 60; Glucose 224 mg/dL (65-110); Sodium 136 mmol/L (137-145)
[2022-10-26 06:02] VITALS: BP 133/87; PULSE 64; RESP 16; TEMP 36.6; O2SAT 96
[2022-10-26 08:00] VITALS: PULSE 64
[2022-10-26 08:19] LABS: Glucose Point of Care 235 mg/dl (65-105)
[2022-10-26 08:46] VITALS: PULSE 63
[2022-10-26] MEDS: GABAPENTIN 300 MG CAPSULE PO (08:46)
[2022-10-26] MEDS: PANTOPRAZOLE 40 MG TABLET PO (08:46)
[2022-10-26] MEDS: METOPROLOL SUCCINATE EXT REL 50 MG TABCR PO (08:46)
[2022-10-26] MEDS: INSULIN GLARGINE (*BKC) 100 UNITS/ML 19 UNITS SUB-Q (08:46)
[2022-10-26] MEDS: INSULIN ASPART (*BKC) 100 UNITS/ML SUB-Q (08:48)
--- NOTE | 2022-10-26 09:19 | PM.DS ---
DS: Admitting Diagnosis Discharge Date 10/26/22 0915 Admitting Diagnosis New onset diabetes DS: Discharge Diagnosis Discharge Diagnosis (1) Acute metabolic encephalopathy: Code(s): G93.41 - Metabolic encephalopathy Status: Acute Assessment and Plan: Presented to the ER for evaluation of altered mental status over the last couple of days. Complaints of mild slurred speech, difficulties comprehending everyday activities, and forgetting the names of his grand children. Brain CT indicated old lunacar infarct at the head of the right caudate nucleus Brain MRI no acute infarct Carotid Doppler ultrasounds Echocardiogram with bubble Continue neurologic checks q.4 hours. Could be related to TIA, hyperglycemia Consulted Neurology at this time (2) TIA (transient ischemic attack): Code(s): G45.9 - Transient cerebral ischemic attack, unspecified Status: Acute Assessment and Plan: Presented to the ER for evaluation of altered mental status over the last couple of days. Complaints of mild slurred speech, difficulties comprehending everyday activities, and forgetting the names of his grand children. Brain CT indicated old lunacar infarct at the head of the right caudate nucleus Brain MRI no acute infarct Carotid Doppler ultrasounds Echocardiogram with bubble Consult neurology thank you for your help lipid panel cholesterol 78, triglycerides 181, LDL 37, HDL 18, stable Start aspirin, consider Plavix No indication for a statin A1c 10.5, continue insulin as ordered Continue neurologic checks q.4 hours. Could be related to TIA, hyperglycemia (3) New onset type 2 diabetes mellitus: Code(s): E11.9 - Type 2 diabetes mellitus without complications Status: Acute Assessment and Plan: Random glucose remains in the high 200-300s Start lantus at 19 units daily Hemoglobin A1c is 10.5 accu cheks diabetic diet sliding scale insulin adjusted at a higher dose Dietitian and certified adapted physical educator consulted. (4) Hyperglycemia: Code(s): R73.9 - Hyperglycemia, unspecified Status: Acute Assessment and Plan: see above (5) Old cerebrovascular accident without late effect: Code(s): Z86.73 - Personal history of transient ischemic attack (TIA), and cerebral infarction without residual deficits Status: Acute Assessment and Plan: Work up above (6) Essential hypertension: Code(s): I10 - Essential (primary) hypertension Status: Acute Assessment and Plan: Current 135/86 Continue metoprolol Continue to trend Adjust therapy as indicated DS: Summary Hospital Course Hospital Course: patient 72-year-old male with a past medical history GERD, hypertension healthy ED complaints of altered mental status, slurred speech, generalized weakness. Upon arrival patient stated that he has been out of it. Family confirms the patient has been a little off for the last 2 days. Upon admission patient was noted to have a glucose in 450s. Several months ago he was told that his A1c was on the higher and he was prediabetic. A1c upon this admission is 10.5. Patient was started on Lantus in insulin sliding scale. Glucose has been checked a.c. HS and has been in the 200s. MRI of the brain was performed and showed no acute abnormality, CT of the head showed old infarcts of the right caudate nucleus, echo showed an EF of 60 65% with grade 1 diastolic dysfunction without shunt. Carotid Doppler showed no hemodynamically significant stenosis the bilateral internal carotid arteries. Neurology had seen the patient. Neurology suggested the patient could have possible dementia or some other diagnosis. certified adaptive physical educator did see the patient as well. Metformin has been started b.i.d. along with Lantus 25 units daily. Will have patient check his blood sugar twice a day fo
--- NOTE | 2022-10-26 09:19 | P.DS_ITS ---
DS: Admitting Diagnosis Discharge Date 10/26/22 0915 Admitting Diagnosis New onset diabetes DS: Discharge Diagnosis Discharge Diagnosis (1) Acute metabolic encephalopathy: Code(s): G93.41 - Metabolic encephalopathy Status: Acute Assessment and Plan: * Presented to the ER for evaluation of altered mental status over the last couple of days. * Complaints of mild slurred speech, difficulties comprehending everyday activities, and forgetting the names of his grand children. * Brain CT indicated old lunacar infarct at the head of the right caudate nucleus * Brain MRI no acute infarct * Carotid Doppler ultrasounds * Echocardiogram with bubble * Continue neurologic checks q.4 hours. * Could be related to TIA, hyperglycemia * Consulted Neurology at this time (2) TIA (transient ischemic attack): Code(s): G45.9 - Transient cerebral ischemic attack, unspecified Status: Acute Assessment and Plan: * Presented to the ER for evaluation of altered mental status over the last couple of days. * Complaints of mild slurred speech, difficulties comprehending everyday activities, and forgetting the names of his grand children. * Brain CT indicated old lunacar infarct at the head of the right caudate nucleus * Brain MRI no acute infarct * Carotid Doppler ultrasounds * Echocardiogram with bubble * Consult neurology thank you for your help * lipid panel cholesterol 78, triglycerides 181, LDL 37, HDL 18, stable * Start aspirin, consider Plavix * No indication for a statin * A1c 10.5, continue insulin as ordered * Continue neurologic checks q.4 hours. * Could be related to TIA, hyperglycemia (3) New onset type 2 diabetes mellitus: Code(s): E11.9 - Type 2 diabetes mellitus without complications Status: Acute Assessment and Plan: * Random glucose remains in the high 200-300s * Start lantus at 19 units daily * Hemoglobin A1c is 10.5 * accu cheks * diabetic diet * sliding scale insulin adjusted at a higher dose * Dietitian and ledger clerk consulted. (4) Hyperglycemia: Code(s): R73.9 - Hyperglycemia, unspecified Status: Acute Assessment and Plan: * see above (5) Old cerebrovascular accident without late effect: Code(s): Z86.73 - Personal history of transient ischemic attack (TIA), and cerebral infarction without residual deficits Status: Acute Assessment and Plan: * Work up above (6) Essential hypertension: Code(s): I10 - Essential (primary) hypertension Status: Acute Assessment and Plan: * Current 135/86 * Continue metoprolol * Continue to trend * Adjust therapy as indicated DS: Summary Hospital Course Hospital Course: patient 72-year-old male with a past medical history GERD, hypertension healthy ED complaints of altered mental status, slurred speech, generalized weakness. Upon arrival patient stated that he has been out of it. Family confirms the patient has been a little off for the last 2 days. Upon admission patient was noted to have a glucose in 450s. Several months ago he was told that his A1c was on the higher and he was prediabetic. A1c upon this admission is 10.5. Patient was started on Lantus in insulin sliding scale. Glucose has been checked a.c. HS and has been in the 200s. MRI of the brain was performed and showed no acute
[2022-10-26] MEDS: metFORMIN HCL 500 MG TABLET PO (09:44)
[2022-10-26] MEDS: INSULIN GLARGINE (*BKC) 100 UNITS/ML 25 UNITS SUB-Q (09:54)
[2022-10-26] MEDS: CHOLESTYRAMINE (W/ SUGAR) 4 GM POWD.PACK BY MOUTH (10:03)
[2022-10-26 11:58] LABS: Glucose Point of Care 196 mg/dl (65-105)
--- NOTE | 2022-10-26 12:09 | WPDNEUROPN ---
Subjective Date/time seen: 10/26/22 12:09 Interval history: 72 years old right-handed male with ongoing disorder of 1. Anxiety 2. TIA 3. Diabetes mellitus with diabetic neuropathy resulting in the gait dysfunction 4. No signs of Parkinson's disease and 5. early dementia for which he will require the follow-up in the office all the pros and cons of his medical problem discussed with the family. Objective Data Vital Signs Vital Signs: Vital Signs - 24 hr 10/25/22 14:00 10/25/22 16:00 10/25/22 20:00 Temperature 36.4 C Pulse Rate 69 63 68 Respiratory Rate 16 Blood Pressure 135/86 Pulse Oximetry 94 10/25/22 21:55 10/26/22 00:00 10/26/22 04:00 Temperature 36.5 C Pulse Rate 76 69 71 Respiratory Rate 16 Blood Pressure 134/81 Pulse Oximetry 99 10/26/22 06:02 10/26/22 08:46 Temperature 36.6 C Pulse Rate 64 63 Respiratory Rate 16 Blood Pressure 133/87 Pulse Oximetry 96 Intake/Output Intake/Output: Intake & Output 10/23/22 10/24/22 10/25/22 10/26/22 23:59 23:59 23:59 23:59 Intake Total 1000 1020 540 Balance 1000 1020 540 Meds/Results Medications: Active Medications Generic Name Dose Route Start Last Admin Trade Name Freq PRN Reason Stop Dose Admin Acetaminophen 325 mg 10/25/22 10:57 10/25/22 11:57 Acetaminophen 325 Mg Tablet PO 325 mg Q6H PRN Administration Mild Pain (1-3) or Fever Cholestyramine Resin 4 gm 10/25/22 10:00 10/26/22 10:03 Cholestyramine (W/ Sugar) 4 Gm Powd.Pack BY MOUTH 4 gm DAILY@1000 ELISE Administration Dextrose 12.5 gm 10/24/22 20:57 Dextrose 50% 25 Gm/50 Ml Syringe IV PUSH PRN PRN Hypoglycemia Protocol Gabapentin 300 mg 10/25/22 09:00 10/26/22 08:46 Gabapentin 300 Mg Capsule PO 300 mg TID ELISE Administration Glucagon 1 mg 10/24/22 20:57 Glucagon For Inj 1 Mg Vial IM PRN PRN Hypoglycemia Protocol Glucose 15 gm 10/24/22 20:57 Glucose Oral Gel 15 Gm Of Glucse In 37.5 Gm Tube PO PRN PRN Hypoglycemia Protocol Dextrose 1,000 mls @ 100 mls/hr 10/24/22 20:57 Dextrose 5% 1,000 Ml IVPB PRN PRN Hypoglycemia Protocol Insulin Aspart 4 - 12 units 10/25/22 08:20 10/26/22 11:52 Insulin Aspart (*Bkc) 100 Units/Ml SUB-Q Not Given TIDWM ELISE Protocol Insulin Glargine 25 units 10/26/22 09:00 10/26/22 09:54 Insulin Glargine (*Bkc) 100 Units/Ml SUB-Q 6 units DAILY ELISE Administration Metformin HCl 500 mg 10/26/22 09:20 10/26/22 09:44 Metformin Hcl 500 Mg Tablet PO 500 mg BID ELISE Administration Metoprolol Succinate 50 mg 10/25/22 09:00 10/26/22 08:46 Metoprolol Succinate Ext Rel 50 Mg Tabcr PO 50 mg DAILY ELISE Administration Pantoprazole Sodium 40 mg 10/25/22 09:00 10/26/22 08:46 Pantoprazole 40 Mg Tablet PO 40 mg Q12H ELISE Administration Radiology Results: ITS Impressions Head CT 10/24/22 15:06 IMPRESSION: 1. Small old lacunar infarct at the head of the right caudate nucleus. No acute intracranial process. 2. Sinus disease with near complete opacification of the visualized portion of the left maxillary sinus. Correlate clinically for acute sinusitis. Brain MRI 10/25/22 07:22 IMPRESSION: No acute intracranial abnormality. Minimal chronic white matter changes. Sinus disease, as above. Carotid Doppler Study 10/25/22 08:27 Impression: No hemodynamically significant stenosis of the bilateral internal carotid arteries. Antegrade flow in the bilateral vertebral arteries. Note: The methodology used is an indirect measurement validated against a direct method (such as the NASCET criteria) that compares diameters at the stenosis to the distal ICA. Labs Labs: Laboratory Results - last 24 hr 10/25/22 10/25/22 10/25/22 11:55 16:57 21:58 WBC RBC Hgb Hct MCV MCH MCHC RDW Plt Count MPV Immature Gran %
== END 2022-10-26 14:10 | disposition home or self-care (01) ==
LOC: ANHED 16:32 → ANH3MED 10-25 14:32
PROVIDERS: Emergency Medicine; Nurse Practitioner; Physician Assistant; Admitting Provider Family Medicine; Emergency Provider Emergency Medicine; PCP Family Medicine; Visit Provider Chiropractor
DX: G93.41 Metabolic encephalopathy (principal); G45.9 Transient cerebral ischemic attack, unspecified; E11.65 Type 2 diabetes mellitus with hyperglycemia; I11.9 Hypertensive heart disease without heart failure; F01.54 Vascular dementia, unspecified severity, with anxiety; R53.83 Other fatigue; R26.9 Unspecified abnormalities of gait and mobility; E11.40 Type 2 diabetes mellitus with diabetic neuropathy, unspecified; K21.9 Gastro-esophageal reflux disease without esophagitis; F03.90 Unspecified dementia, unspecified severity, without behavioral disturbance, psychotic disturbance, mood disturbance, and anxiety; E78.2 Mixed hyperlipidemia; I45.4 Nonspecific intraventricular block; R94.31 Abnormal electrocardiogram [ECG] [EKG]; J32.9 Chronic sinusitis, unspecified; Z85.528 Personal history of other malignant neoplasm of kidney; Z87.891 Personal history of nicotine dependence; Z86.73 Personal history of transient ischemic attack (TIA), and cerebral infarction without residual deficits; Z79.899 Other long term (current) drug therapy
CPT/HCPCS: 36415; 70450; 70551; 80053; 80061; 81003; 82948; 83036; 83605; 83735; 85025; 85055; 85610; 85730; 87040; 93005; 93306; 93880; 96360; 96375; 99285; A9270; G0378; J1815; J7030; Q9957

== ENCOUNTER 2022-11-08 09:01 | Outpatient (RCR) | payer OTHER, SELFPAY | END 2022-11-14 10:10 | disposition home or self-care (01) | LOC: ANHDMC 09:01 | PROVIDERS: PCP Family Medicine; Visit Provider Family Medicine | DX: E11.9 Type 2 diabetes mellitus without complications (principal); Z71.89 Other specified counseling | CPT/HCPCS: G0108 ==

== ENCOUNTER → 2023-02-27 08:11 | Outpatient (CLI) | payer OTHER, SELFPAY ==
--- NOTE | ~2023-02-27 | CT_ITS ---
EXAMINATION: CT lung screening DATE: 02/27/2023 08:24 INDICATION: TECHNIQUE: Computed tomography (CT) of the chest was performed without intravenous contrast. The dose -length product was 193.03 mGy-cm. Automated exposure control and iterative reconstruction technique were employed. COMPARISON: CT dated 01/02/2022 FINDINGS: No significant pleural or pericardial effusion. No thoracic lymphadenopathy. There are chol ecystectomy clips. There are calcified granulomas of the right lung. No thoracic lymphadenopathy. The re is moderate thoracic spondylosis. No endobronchial lesions. No pneumothorax. There are interstitia l infiltrates of the left upper lobe, chronic. IMPRESSION: 1. Lung-RADS category 1: Negative. Continue annual screening with noncontrast low-dose chest CT in 12 months. Reviewed, dictated and finalized at location [facility]. IMPRESSION: 1. Lung-RADS category 1: Negative. Continue annual screening with noncontrast l ow-dose chest CT in 12 months.
== END ==
PROVIDERS: PCP Family Medicine; Visit Provider Family Medicine
DX: Z12.2 Encounter for screening for malignant neoplasm of respiratory organs (principal); Z87.891 Personal history of nicotine dependence
CPT/HCPCS: 71271

== ENCOUNTER 2024-01-22 12:53 | Outpatient (CLI) | payer OTHER, SELFPAY | END 2024-01-22 12:54 | disposition home or self-care (01) | LOC: ANHAUDIO 12:53 | PROVIDERS: PCP Family Medicine; Visit Provider Family Medicine | DX: H90.3 Sensorineural hearing loss, bilateral (principal); H61.23 Impacted cerumen, bilateral | CPT/HCPCS: 92557; 92567 ==

== ENCOUNTER 2024-03-04 09:35 | Outpatient (CLI) | payer OTHER, SELFPAY ==
--- NOTE | ~2024-03-04 | CT_ITS ---
CT Scan of the Chest without Contrast: Clinical Indication: Lung congestion, nicotine dependence Technique: Contiguous sections were acquired throughout the chest without intravenous contrast. Dose reduction technique was used on this scan by utilizing automated exposure control and iterative recon struction technique. The dose-length product (DLP) was 229.94 mGy-cm. COMPARISON: 02/27/2023 Findings: There is no evidence of any significant mediastinal, hilar or axillary lymphadenopathy. Calcified rig ht hilar lymph nodes are present. Mild coronary artery calcifications are present. There is no evidence of pleural or pericardial effusion. Stable chronic interstitial changes in the left upper lobe peripherally. No pulmonary nodule evident. Images through the upper abdomen reveal no abnormalities. Impression: Lung RADS 1: Negative. 12 month follow-up screening CT advised. Reviewed, dictated and finalized at [facility]. Impression: Lung RADS 1: Negative. 12 month follow-up screening CT advised.
== END 2024-03-04 09:36 | disposition home or self-care (01) ==
LOC: ANHIMG 09:38
PROVIDERS: PCP Family Medicine; Visit Provider Family Medicine
DX: Z12.2 Encounter for screening for malignant neoplasm of respiratory organs (principal); Z87.891 Personal history of nicotine dependence
CPT/HCPCS: 71271

== ENCOUNTER 2024-07-07 13:01 | Outpatient (CLI) | payer OTHER, SELFPAY ==
--- NOTE | ~2024-07-07 | XR_ITS ---
CHEST RADIOGRAPH, PA AND LATERAL CLINICAL HISTORY: R05.9 - Cough, unspecified . COMPARISON: Reference is made to a CT examination of the chest dated 03/04/2024 TECHNIQUE: PA and lateral views of the chest. FINDINGS The cardiomediastinal silhouette is unremarkable. The lungs are clear. Visualized osseous structures and soft tissues are unremarkable. IMPRESSION: No focal infiltrate or effusion. Reviewed, dictated and finalized at location [facility]. [facility]
== END 2024-07-07 13:02 | disposition home or self-care (01) ==
PROVIDERS: PCP Family Medicine; Visit Provider Family Medicine
DX: R05.9 Cough, unspecified (principal)
CPT/HCPCS: 71046

== ENCOUNTER 2025-03-23 13:39 | Outpatient (CLI) | payer OTHER, SELFPAY ==
--- NOTE | ~2025-03-23 | CT_ITS ---
EXAMINATION:CT lung screening DATE: 03/23/2025 14:11 INDICATION: Personal history of nicotine dependence. TECHNIQUE: Computed tomography (CT) of the chest was performed without intravenous contrast. Automated exposure control and iterative reconstruction technique were employed. The dose-length product (DLP) was 262.24 mGy-cm. COMPARISON: Chest CT 03/04/2024 FINDINGS: There is chronic diffuse peripheral septal thickening in the lungs. A calcified right lung nodule and calcified right hilar lymph nodes are consistent with old granulomatous disease. No pleural effusion. The heart size is normal. No pericardial effusion. There are coronary artery calcifications. There are changes of cholecystectomy. There is a 5 mm stone versus parenchymal calcification in right kidney. There is mild thoracic spondylosis. IMPRESSION: 1. Lung-RADS category 1: Negative. Continue annual screening with noncontrast low-dose chest CT in 12 months. Reviewed, dictated and finalized at location [facility]. IMPRESSION: 1. Lung-RADS category 1: Negative. Continue annual screening with noncontrast l ow-dose chest CT in 12 months.
== END 2025-03-23 13:40 | disposition home or self-care (01) ==
LOC: MICIMG 13:40
PROVIDERS: PCP Family Medicine; Visit Provider Family Medicine
DX: Z12.2 Encounter for screening for malignant neoplasm of respiratory organs (principal); Z87.891 Personal history of nicotine dependence
CPT/HCPCS: 71271